=== PATIENT | male | born 2000 | race Caucasian/White ===

== ENCOUNTER 2024-03-14 16:11 | Emergency (ER) | payer SELFPAY ==
[~2024-03-14] VITALS: Ht 167.6 cm; Wt 56.0 kg
[2024-03-14 16:13] VITALS: O2SAT 97
[2024-03-14 17:00] LABS: DIFFERENTIAL COMMENT 1; HEMATOCRIT. 39.2 % (42.0-52.0); HEMOGLOBIN. 13.3 g/dL (14.0-18.0); MEAN CORPUSCULAR HEMOGLOBIN 30.5 pg (28.0-32.0); MEAN CORPUSCULAR VOLUME 89.7 fL (80.0-94.0); MEAN PLATELET VOLUME 6.9 fl (7.4-10.4); PLATELET 349 x1000/uL (130-400); RED BLOOD CELL COUNT 4.37 mill/uL (4.7-6.1); RED CELL DISTRIBUTION WIDTH 14.4 % (11.6-14.6)
[2024-03-14 17:05] LABS: CHLORIDE 110 mEq/L (98-107); POTASSIUM 3.4 mEq/L (3.5-5.1); SODIUM 144 mEq/L (136-145)
[2024-03-14 17:06] LABS: CALCIUM 9.4 mg/dL (8.7-10.4); CARBON DIOXIDE 25 mEq/L (21-32)
[2024-03-14 17:11] LABS: CREATININE 0.7 mg/dL (0.6-1.3); GLUCOSE 115 mg/dL (70-105); UREA NITROGEN BLOOD 9 mg/dL (9-23)
[2024-03-14 17:13] LABS: TROPONIN I HIGH SENSITIVITY 5 ng/L (3.0-53)
[2024-03-14 17:14] LABS: ETHANOL BLOOD < 10 mg/dL (<10)
[2024-03-14] MEDS: SODIUM CHLORIDE 0.9% 1,000 ML IV ONE (17:39)
[2024-03-14] MEDS: LORAZEPAM 2MG/ML INJ IV ONE (17:39)
[2024-03-14 18:04] LABS: PLATELET ESTIMATE NORMAL
[2024-03-14 18:36] LABS: CLARITY URINE TURBID (CLEAR); COLOR URINE YELLOW (YELLOW); GLUCOSE URINE NEGATIVE (NEGATIVE); KETONES URINE NEGATIVE (NEGATIVE); LEUKOCYTE ESTERASE URINE NEGATIVE (NEGATIVE); NITRITE URINE NEGATIVE (NEGATIVE); OCCULT BLOOD URINE NEGATIVE (NEGATIVE); PROTEIN URINE 1+ (NEGATIVE); SPECIFIC GRAVITY URINE 1.021 (1.005-1.030)
[2024-03-14 18:46] LABS: RBC URINE NONE SEEN /hpf (0-2); SQUAMOUS EPITHELIAL CELL URINE RARE /lpf (RARE/1+); WBC URINE 0-2 /hpf (0-2)
[2024-03-14 18:47] LABS: AMORPHOUS SEDIMENT URINE 2+ /lpf; BACTERIA URINE TRACE
[2024-03-14 18:49] LABS: *AMPHETAMINES SCREEN URINE NEGATIVE (NEGATIVE); *BARBITURATES SCREEN URINE NEGATIVE (NEGATIVE); *BENZODIAZEPINES SCREEN URINE NEGATIVE (NEGATIVE); *COCAINE SCREEN URINE NEGATIVE (NEGATIVE); CANNABINOID URINE SCREEN NEGATIVE (NEGATIVE); ECSTASY MDMA SCREEN URINE NEGATIVE (NEGATIVE); METHADONE URINE SCREEN NEGATIVE (NEGATIVE); OPIATES URINE SCREEN NEGATIVE (NEGATIVE); PHENCYCLIDINE URINE SCREEN NEGATIVE (NEGATIVE)
[2024-03-14] MEDS: LORAZEPAM 1MG TABLET PO ONE (19:15)
[2024-03-14 20:15] VITALS: BP 105/70; PULSE 95; RESP 15; TEMP 36.89184; O2SAT 98
== END 2024-03-14 20:15 | disposition home or self-care (01) ==
LOC: ER 16:11
DX: R55 Syncope and collapse (principal); F19.239 Other psychoactive substance dependence with withdrawal, unspecified; F11.10 Opioid abuse, uncomplicated
CPT/HCPCS: 80305; 80048; 81003; 80320; 83880; 85025; 84484; 36415; 96361; 96374; 99283; J2060; J7030; Z7610 ×3; G0480